=== PATIENT | female | born 1965 | race Hispanic/Latino ===

== ENCOUNTER → 2016-04-23 | Outpatient (CLI) | payer OTHER ==
[~2016-04-23] MED LIST: DCS100C PO; HYDR-34 PO; IBP600T1 PO; MAGN-47 PO; Simethicone PO
--- OUTSIDE RECORDS SUMMARY | 2016-04-23 13:22 | XMS REPORT | Continuity of Care Document ---
Author Author [facility] Organization [facility] Address Unknown Phone Unavailable Support Name Relationship Address Phone DANELLE YUAN DO Caregiver [address] [place] [address] MARY QUINTERO Next Of Kin [address] [place] [address] Insurance Providers Payer Name Policy Number Subscriber Name Relationship Self Pay Alexey Quintero 18 Self / Same As Patient Advance Directives Directive Response Recorded Date/Time Advance Directives No 04/19/14 8:06am Health Care Power of Safety Engineer No 04/19/14 8:06am Organ Donor Yes 04/19/14 8:06am Resuscitation Status Full Code 04/19/14 8:06am Problems No known problems or medical conditions. Medications Medication Dose Route Sig Days/Qty Instructions Order Date Discontinued Date Status Docusate Sodium 100 Mg PO TWICE A DAY PRN CONSTIPATION 40 Qty 04/20/14 Active Acetaminophen/Hydrocodone Bitart ([place]) 1-2 Ea PO EVERY 6 HOURS PRN PAIN 50 Qty 04/20/14 Active Ibuprofen 600 Mg PO EVERY 6 HOURS PRN PAIN 60 Qty 04/20/14 Active [Simethicone] 40 Mg PO THREE TIMES A DAY PRN INDIGESTION 40 Qty Active Magnesium Hydroxide 400 Mg PO TWICE A DAY PRN CONSTIPATION 30 Days Active Social History Social History Problem Response Recorded Date/Time Recent Foreign Travel No 04/19/2014 8:06am Smoking Status Current Everyday Smoker 04/19/2014 8:07am Do you dip or chew tobacco? No 04/19/2014 8:07am Query Response Start Date Stop Date Smoking Status Current Everyday Smoker Hospital Discharge Instructions No hospital discharge instructions. Plan of Care No plan of care. Functional Status No functional status results. Allergies, Adverse Reactions, Alerts Allergen Type Severity Reaction Status Last Updated morphine Allergy Unknown ANAPHYLAXIS Active 04/19/14 Immunizations Name Given Type Date of Influenza Vaccine 12/09/13 Historical Vital Signs Acute Vital Signs Vital Response Date/Time Temperature (Fahrenheit) 97.4 degrees F (97.6 - 99.5) Temperature (Calculated Celsius) 36.11678 degrees C (36.4 - 37.5) Temperature Source Tympanic Pulse Rate (adult) 74 bpm (60 - 90) Respiratory Rate 18 bpm (12 - 24) O2 Sat by Pulse Oximetry 100 % (88 - 100) Blood Pressure 103/60 mm Hg Pain Pain Intensity 3 Pain Pain Intensity 3 Height (Feet) 5 feet Height (Inches) 2.00 inches Height (Calculated Centimeters) 157.584114 cm Weight (Pounds) 134 pounds Weight (Calculated Grams) 01707.378 gm Weight (Calculated Kilograms) 60.237454 kilograms Height 5 ft 2 in Weight 134 lb Body Mass Index 24.5 kg/m^2 Results Laboratory Results Test Name Result Units Flags Reference Collection Date/Time Result Date/ Time Comments White Blood Count 9.5 10^3/uL 4.3-11.0 04/13/2014 10:02am 04/13/2014 10 :14am Red Blood Count 5.16 10^6/uL 4.35-5.85 04/13/2014 10:02am 04/13/2014 10 :14am Hemoglobin 15.2 G/DL 11.5-16.0 04/13/2014 10:02am 04/13/2014 10:14am Hematocrit 45 % 35-52 04/13/2014 10:02am 04/13/2014 10:14am Mean Corpuscular Volume 86 FL 80-99 04/13/2014 10:02am 04/13/2014 10: 14am Mean Corpuscular Hemoglobin 30 PG 25-34 04/13/2014 10:02am 04/13/2014 10:14am Mean Corpuscular Hemoglobin Concent 34 G/DL 32-36 04/13/2014 10:02am 10:14am Red Cell Distribution Width 13.2 % 10.0-14.5 04/13/2014 10:02am 2014 10:14am Platelet Count 210 10^3/uL 130-400 04/13/2014 10:02am 04/13/2014 10: 14am Mean Platelet Volume 9.0 FL 7.4-10.4 04/13/2014 10:02am 04/13/2014 10: 14am Neutrophils (%) (Auto) 64 % 42-75 04/13/2014 10:02am 04/13/2014 10: 14am Lymphocytes (%) (Auto) 30 % 12-44 04/13/2014 10:02am 04/13/2014 10: 14am Monocytes (%) (Auto) 5 % 0-12 04/13/2014 10:02am 04/13/2014 10:14am Eosinophils (%) (Auto) 1 % 0-10 04/13/2014 10:02am 04/13/2014 10:14am Basophils (%) (Auto) 0 % 0-10 04/13/2014 10:02am 04/13/2014 10:14am Neutrophils # (Auto) 6.1 X 10^3 1.8-7.8 04/13/2014 10:02am 04/13/2014 10:14am Lymphocytes # (Auto) 2.8 X 10^3 1.0-4.0 04/13/2014 10:02am 04/13/2014 10:14am Monocytes # (Auto) 0.4 X 10^3 0.0-1.0 04/13/2014 10:02am 04/13/2014 10: 14am Eosinophils # (Auto) 0.1 10^3/uL 0.0-0.3 04/13/2014 10:02am 04/13/2014 10:14am Basophils # (Auto) 0.0 10^3/uL 0.0-0.1 04/13/2014 10:02am 04/13/2014 10 :14am Procedures Procedure Status Date Provider(s) Robot-assisted hysterectomy with bilateral salpingo-oophorectomy completed DANELLE YUAN DO Encounters Encounter Location Date/Time Departed [facility] 04/19/14 6:39am Registered Clinic [facility] 04/13/14 8:51am Registered Clinic [facility] 04/06/14 12:48pm
--- NOTE | 2016-04-23 16:15 | Diagnostic Imaging Report ---
PROCEDURE: MR imaging of the brain without contrast. TECHNIQUE: Multiplanar, multisequence MR imaging of the brain was performed without contrast. INDICATION: Dizziness and headaches for five months. FINDINGS: Diffusion sequence demonstrates no diffusion restriction to suggest an acute infarct or other diffusion abnormality within the brain or intracranially. There is diffusion restriction however seen in the right maxillary sinus. Other sequences demonstrate full obliteration of the right maxillary sinus with a T2 hyperintense, T1 hypointense lesion that is not associated with expansion of the maxillary sinus and is limited to the sinus cavity as well. It appears to be even associated with slight decrease in the size of the sinus on the right side which can be associated with chronic sinusitis. No aggressive features by MRI are seen. This study is without contrast and is not evaluated for possible enhancing components. The brain demonstrates minimal T2 hyperintense signal lesions seen in the deep and subcortical white matter, most prominent in the left frontoparietal region measuring 5 mm likely related to early manifestation of chronic microvascular ischemic changes. There is no significant demyelination plaque, brain edema, or mass effect seen. There is no hydrocephalus. The central vascular flow voids appear grossly unremarkable. The internal auditory canals and inner ear structures appear symmetric. The pituitary gland is normal in size. No hypothalamic or pineal region mass. IMPRESSION: 1. No significant intracranial abnormality. 2. 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 Correlate clinically and with dedicated CT scan of the sinuses as needed. Dictated by: Dictated on workstation # [id number]
== END ==
LOC: RAD 13:18
PROVIDERS: ATTEND Nurse Practitioner Adult Health
DX: R42 Dizziness and giddiness (principal)
CPT/HCPCS: 70551

== ENCOUNTER → 2018-04-15 | Outpatient (CLI) | payer SELFPAY ==
--- NOTE | 2018-04-15 09:11 | Diagnostic Imaging Report ---
CLINICAL INDICATION: Patient states that she has been getting dizzy the past two years and getting worse. Patient had concussion 4 years ago. EXAM: Axial CT scan of the brain performed without IV contrast. COMPARISON: MRI of the brain without IV contrast dated 04/23/2016. FINDINGS: There is no evidence of acute cerebral infarct, intracranial hemorrhage, or gross mass effect. The previously seen 5 mm area of high T2 signal in the lateral left frontal lobe subcortical region is not visualized on this exam and may be due to to differences in imaging modality. The brain parenchymal volume appears appropriate for patient's age. There is normal cartwright-white matter distinction. There is no significant midline shift or herniation. There is no evidence of hydrocephalus. The basal cisterns are unremarkable. The skull, extracranial soft tissue, and orbits are unremarkable. The visualized portions of the paranasal sinuses are unremarkable. 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 Temporal bones show no significant abnormality. IMPRESSION: 1: Unremarkable CT scan of the brain for age. 2: Of note, the right maxillary sinus was not imaged on this exam to evaluate for interval change of the previously seen consolidated right maxillary sinus. Dictated by: Dictated on workstation # [id number]
== END ==
LOC: RAD FS 08:46
PROVIDERS: ATTEND Nurse Practitioner Family
DX: R42 Dizziness and giddiness (principal)
CPT/HCPCS: 70450

== ENCOUNTER → 2018-11-01 | Outpatient (CLI) | payer SELFPAY ==
--- NOTE | 2018-11-01 16:26 | Diagnostic Imaging Report ---
INDICATION: Left hip pain. Fall. COMPARISON: None. FINDINGS: Two views of the left hip were obtained and show no fractures, dislocations, or other acute bony abnormalities. Joint spaces are well maintained throughout. The soft tissues appear unremarkable. No radiopaque foreign bodies are identified. IMPRESSION: No acute fracture or dislocation of the left hip. Dictated by: Dictated on workstation # [id number]
== END ==
LOC: RAD FS 15:54
PROVIDERS: ATTEND Nurse Practitioner Family
DX: M25.552 Pain in left hip (principal); W19.XXXA Unspecified fall, initial encounter
CPT/HCPCS: 73502